=== PATIENT | male | born 1950 | race Two or more races ===

== ENCOUNTER 2021-06-26 22:39 | Emergency (ER) | payer MEDICARE, BC ==
[~2021-06-26] VITALS: Ht 180.3 cm; Wt 68.0 kg
--- NOTE | 2021-06-26 22:55 | NUR ---
Xray at bedside.
[2021-06-26] MEDS ORDERED: LINA72CA PO (22:57)
[2021-06-26] MEDS ORDERED: CANA100T PO (22:57)
[2021-06-26] MEDS ORDERED: AMIO200T5 PO (22:57)
[2021-06-26] MEDS ORDERED: TAMS-3 PO (22:57)
[2021-06-26] MEDS ORDERED: UMEC1BLS IH (22:57)
[2021-06-26] MEDS ORDERED: APIX5TAB4 PO (22:57)
[2021-06-26] MEDS ORDERED: TEST5GEL2 TD (22:57)
[2021-06-26] MEDS ORDERED: METO-356 PO (22:57)
[2021-06-26] MEDS ORDERED: SITA100T PO (22:57)
[2021-06-26] MEDS ORDERED: DOCU-141 PO (22:57)
[2021-06-26] MEDS ORDERED: ATOR40TA PO (22:57)
[2021-06-26] MEDS ORDERED: MULT-1196 PO (22:57)
--- NOTE | 2021-06-26 23:31 | NUR ---
Patient to CT via [facility]
[2021-06-27] MEDS ORDERED: OXYC-128 PO (00:41)
[2021-06-27] MEDS ORDERED: OXYCODONE/APAP 5-325 MG TABLET PO ONE (00:45)
--- NOTE | 2021-06-27 00:55 | NUR ---
Patient discharged to home in stable condition. Written and verbal after care instructions given. Patient verbalizes understanding of instructions. Stressed follow up or return to ER for worsening s/s. Patient out of ER via wheelchair, instructed on crutches, crutches in hand, VSS, all belongings taken, no acute signs of distress, assisted patient on transfer from chair to car, no falls noted, provided patient with copies of xray and CT, instructed not to drive, to be driven home via private vehicle by .
[2021-06-27] MEDS ORDERED: OXYCODONE/APAP 5-325 MG TABLET ONE (00:59)
[2021-06-27 01:30] VITALS: BP 113/76
== END 2021-06-27 01:30 | disposition home or self-care (01) ==
LOC: ER 22:43
DX: S70.01XA Contusion of right hip, initial encounter (principal); S70.11XA Contusion of right thigh, initial encounter; W01.0XXA Fall on same level from slipping, tripping and stumbling without subsequent striking against object, initial encounter; Y92.89 Other specified places as the place of occurrence of the external cause; E11.9 Type 2 diabetes mellitus without complications; Z85.118 Personal history of other malignant neoplasm of bronchus and lung; Z79.01 Long term (current) use of anticoagulants; Z79.899 Other long term (current) drug therapy; Z79.84 Long term (current) use of oral hypoglycemic drugs
CPT/HCPCS: 73502; 73700; A4663